=== PATIENT | male | born 1950 | race Caucasian/White ===

== ENCOUNTER 2025-01-31 11:36 | Inpatient (IN) | payer MEDICARE, MEDICAID ==
[~2025-01-31] VITALS: Ht 175.3 cm; Wt 72.6 kg
[2025-01-31] VITALS (20 sets, daily range): BP systolic 74–120; BP diastolic 50–74; PULSE 99–117; RESP 18; TEMP 36.9–36.9184; O2SAT 88–97
[~2025-01-31 11:36] MED LIST: ATOR10TA69 PO; DOCU-405 PO; FINA5TAB11 GT; FLUT15.844 BOTHNSTRLS; KEPP500 MT; LEVO25TA7 PO; LEVO750T68 MT; LORA-671 PO; MENT3.5O TP; MULT-1146 PO; PROT20 MT; REGULOID PO
[2025-01-31] MEDS ORDERED: CALCIUM GLUCONATE 1GM PREMIX 50 ML IV ONE (12:00)
[2025-01-31] MEDS: MAGNESIUM 2 G PREMIX 50 ML IV ONE (12:07)
[2025-01-31] MEDS: PIPERACILLIN/TAZO 3.375G/50ML 50 ML IV ONE (12:08)
[2025-01-31] MEDS: SODIUM CHLORIDE 0.9% (SEPSIS BOLUS) IV ONE (12:08)
[2025-01-31 12:18] LABS: BASOPHILS % 0.5 % (0.0-2.0); EOSINOPHILS % 0.2 % (0.0-5.0); HEMATOCRIT. 46.1 % (42.0-52.0); HEMOGLOBIN. 15.1 g/dL (14.0-18.0); LYMPHOCYTES % 16.0 % (20.0-50.0); MEAN PLATELET VOLUME 7.9 fl (7.4-10.4); MONOCYTES % 2.8 % (2.0-8.0); NEUTROPHILS % 80.5 % (40.0-76.0); PLATELET 389 x1000/uL (130-400); RED BLOOD CELL COUNT 5.00 mill/uL (4.7-6.1); RED CELL DISTRIBUTION WIDTH 14.3 % (11.6-14.6)
[2025-01-31 12:34] LABS: INR 1.1
[2025-01-31 12:36] LABS: UREA NITROGEN BLOOD 19 mg/dL (9-23)
[2025-01-31 12:37] LABS: PROTEIN TOTAL 8.7 g/dL (6.0-8.3)
[2025-01-31 12:38] LABS: ASPARTATE AMINOTRANSFERASE 35 IU/L (<34); BILIRUBIN DIRECT 0.2 mg/dL (<=3.0); BILIRUBIN TOTAL 0.5 mg/dL (0.1-1.0)
[2025-01-31] MEDS: CALCIUM GLUCONATE 1,000 MG in SODIUM CHLORIDE 0.9% 50 ML IV SCH (12:38)
[2025-01-31 12:39] LABS: CREATININE 1.4 mg/dL (0.6-1.3)
[2025-01-31 12:46] LABS: TROPONIN I HIGH SENSITIVITY 85 ng/L (3.0-53)
[2025-01-31] MEDS: SODIUM BICARBONATE 8.4% 50MEQ/50ML SYR IV ONE (13:32)
[2025-01-31 13:44] LABS: INFLUENZA TYPE A Presumptive Negative (Pres. Neg.); INFLUENZA TYPE B Presumptive Negative (Pres. Neg.); RESPIRATORY SYNCYTIAL VIRUS Not Detected (Not Detectd)
[2025-01-31 13:45] LABS: BG DEOXYHEMOGLOBIN 24.2 % (0.0-5.0)
[2025-01-31 14:40] LABS: TROPONIN I HIGH SENSITIVITY 150 ng/L (3.0-53)
[2025-01-31] MEDS: VANCOMYCIN 1G PREMIX 200 ML IV SCH ×2 (14:57→17:53)
[2025-01-31] MEDS: VANCOMYCIN 1G PREMIX 200 ML IV ONE (14:57)
[2025-01-31] MEDS ORDERED: NOREPINEPHRINE 8 MG in DEXT 5% WATER 242 ML IV STA (15:08)
[2025-01-31] MEDS ORDERED: PROPOFOL 10MG/ML 100ML 100 ML IV SCH (15:15)
[2025-01-31] MEDS: SODIUM CHLORIDE 0.9% 1,000 ML IV ONE (15:33)
[2025-01-31] MEDS: NOREPINEPHRINE 8MG/250ML PMX 250 ML IV PRN (15:33)
[2025-01-31] MEDS ORDERED: SODIUM CHLORIDE 0.9% 1,000 ML IV SCH (16:15)
[2025-01-31] MEDS ORDERED: IPRATROPIUM/ALBUTEROL 0.5-3(2.5)MG/3ML NEB NEB PRN (16:15)
[2025-01-31] MEDS ORDERED: MAGNESIUM/ALUMINUM HYDROXIDE/SIMETHICONE 30ML UDC PO PRN (16:15)
[2025-01-31] MEDS ORDERED: ONDANSETRON HCL 4MG/2ML INJ IV PRN (16:15)
[2025-01-31] MEDS ORDERED: DOCUSATE SODIUM 100MG CAPSULE PO PRN (16:15)
[2025-01-31] MEDS ORDERED: ACETAMINOPHEN 325MG TABLET PO PRN ×2 (16:15)
[2025-01-31] MEDS ORDERED: DEXT 5%/0.9% NACL 1,000 ML IV SCH (19:15)
[2025-01-31] MEDS ORDERED: FENTANYL 2500MCG/250ML PMX 250 ML IV ONE (20:00)
[2025-01-31] MEDS ORDERED: MORPHINE SULFATE 100 MG in SODIUM CHLORIDE 0.9% 90 ML IV PRN (20:00)
[2025-01-31] MEDS ORDERED: FENTANYL 2500MCG/250ML PMX 250 ML IV PRN (20:00)
[2025-01-31] MEDS ORDERED: NOREPINEPHRINE 8MG/250ML PMX 250 ML IV PRN (20:45)
[2025-01-31] MEDS ORDERED: PIPERACILLIN/TAZO 3.375G/50ML 50 ML IV SCH ×2 (22:00)
[2025-01-31] MEDS: MORPHINE SULFATE 100 MG in SODIUM CHLORIDE 0.9% 90 ML IV PRN (22:59)
[2025-02-01] MEDS ORDERED: VANCOMYCIN 500MG/100ML IV SCH (06:00)
[2025-02-01] MEDS ORDERED: ASPIRIN 81MG EC TABLET PO SCH (09:00)
== END 2025-02-01 02:00 | DRG 871 ==
LOC: ER 11:36 → EDBEDREQTM 15:25 → EDBEDREQSVC 15:25 → EDBEDREQ 15:25 → EDBEDREQTM 16:44 → MICUNO 20:26
PROVIDERS: ADMIT Internal Medicine; ATTEND Internal Medicine
PROC: 5A1935Z Respiratory Ventilation, Less than 24 Consecutive Hours (ICD-10-PCS; principal; 2025-01-31)
PROC: 0BH17EZ Insertion of Endotracheal Airway into Trachea, Via Natural or Artificial Opening (ICD-10-PCS; 2025-01-31)
DX: A41.9 Sepsis, unspecified organism (principal); I21.4 Non-ST elevation (NSTEMI) myocardial infarction; R65.21 Severe sepsis with septic shock; J96.01 Acute respiratory failure with hypoxia; N17.9 Acute kidney failure, unspecified; N18.9 Chronic kidney disease, unspecified; I12.9 Hypertensive chronic kidney disease with stage 1 through stage 4 chronic kidney disease, or unspecified chronic kidney disease; E11.22 Type 2 diabetes mellitus with diabetic chronic kidney disease; E87.20 Acidosis, unspecified; Z20.822 Contact with and (suspected) exposure to COVID-19; Z66 Do not resuscitate; R29.2 Abnormal reflex; Z74.01 Bed confinement status; Z51.5 Encounter for palliative care; Z88.5 Allergy status to narcotic agent; Z93.1 Gastrostomy status; Z79.899 Other long term (current) drug therapy
CPT/HCPCS: 36415; 71045; 80048; 80076; 82375; 82803; 83605; 83735; 83880; 84145; 84484; 85025; 87420; 87426; 87804; 93005; 94002; 94070; 99291; J0612; J2270; J2543; J2704; J3373; J3475; J3490; J7030; J7050; J7060